=== PATIENT | male | born 1970 | race American Indian/Alaskan Native ===

== ENCOUNTER 2021-08-07 17:19 | Emergency (ER) | payer SELFPAY ==
--- NOTE | 2021-08-07 17:41 | Emergency Department Report ---
HPI - General Chief Complaint: Weakness Time Seen by Provider: 08/07/21 17:26 - HPI HPI: Room 3 The patient is a 50-year-old male present with a chief complaint of dizziness. Patient reportedly has been working outside this morning approximately 6 hours. Patient states he felt fine after working and was driving to the pharmacy. Patient states he was asymptomatic while driving however when he went inside the pharmacy he began to feel dizzy and off-balance. Patient developed some nausea vomiting. Patient was found to be diaphoretic and EMS was called to find the patient hypertensive at 180/110. Patient was administered 1 L normal saline prior to arrival to the ED and EMS reports the patient has some improvement. Patient still complains of slight dizziness currently ED Past Medical Hx - Past Medical History Previous Medical History?: No - Surgical History Past Surgical History?: No - Family History Family history: no significant - Social History Smoking Status: Never Smoker Substance Use Type: None (Denies illicit drug use) ED Review of Systems ROS: Stated complaint: DEHYDRATION Other details as noted in HPI Constitutional: no symptoms reported Eyes: denies: eye pain ENT: denies: throat pain Respiratory: no symptoms reported Cardiovascular: denies: chest pain Endocrine: no symptoms reported Gastrointestinal: nausea, vomiting. denies: abdominal pain Genitourinary: denies: dysuria Musculoskeletal: denies: back pain Neurological: vertigo. denies: headache, weakness Physical Exam - Physical Exam Vital Signs: Vital Signs 08/07/21 17:22 Pulse Rate 76 Blood Pressure 160/80 [Left] O2 Sat by Pulse 98 Oximetry Physical Exam: GENERAL: The patient is well-developed well-nourished []. [] HEENT: Normocephalic. Atraumatic. Extraocular motions are intact. Vertical and horizontal nystagmus noted NECK: Supple. Trachea midline CHEST/LUNGS: Clear to auscultation. There is no respiratory distress noted. HEART/CARDIOVASCULAR: Regular. There is no tachycardia. There is no gallop rub or murmur. ABDOMEN: Abdomen is soft, nontender. Patient has normal bowel sounds. There is no abdominal distention. SKIN: There is no rash. There is no edema. There is no diaphoresis. NEURO: The patient is awake, alert, and oriented. The patient is cooperative. Cranial nerves II through XII grossly intact. The patient has normal speech. There is dysmetria noted with [id number] bilaterally. GCS 15 MUSCULOSKELETAL: There is no evidence of acute injury. ED Course Vital Signs 08/07/21 17:22 Pulse Rate 76 Blood Pressure 160/80 [Left] O2 Sat by Pulse 98 Oximetry - Consultations Consultation #1: 08/07/21 21:56 CTh discussed with neurologist-recommends aspirin/Plavix in transfer to facility with neuro intervention in case stenotic vertebral artery worsens Consultation #2: 08/07/21 21:57 [facility] grip transfer line called ED Medical Decision Making - Lab Data Result diagrams: 08/07/21 17:58 08/07/21 17:58 - EKG Data -: EKG Interpreted by Me EKG shows normal: sinus rhythm Rate: normal - EKG Data When compared to previous EKG there are: previous EKG unavailable Interpretation: nonspecific ST-T wave suly (Biphasic T waves in lead III, T wave inversion lead V2) - Radiology Data Radiology results: report reviewed (CT head, CTA head, CTA neck), image reviewed (CT head, CTA head, CTA neck) [place] [id number] Cat Scan Report Signed Patient: JULIANA BACON MR#: [id number] 4 : 1970 Acct:[id number] Age/Sex: 50 / M ADM Date: 08/07/21 Loc: ED Attending Dr: Ordering Physician: JORDAN ACHARYA MD Date of Service: 08/07/21 Procedure(s): CT head/brain wo con Accession Number(s): [id number] cc: JORDAN ACHARYA MD CT HEAD WITHOUT CONTRAST INDICATION / CLINICAL INFORMATION: Vertical nystagmus, dysmetria, dizziness. TECHNIQUE: All CT scans at this location are performed using CT dose reduction for ALARA by means of automated exposure control. COMPARISON: None available. FINDINGS: HEMORRHAGE: No evidence of intracranial hemorrhage or extra-axial fluid collection. EXTRA-AXIAL SPACES: Cortical sulci, sylvian fissures and basilar cisterns have an unremarkable appearance. VENTRICULAR SYSTEM: Developmental asymmetry of the lateral ventricles is noted left larger than right. CEREBRAL PARENCHYMA: No areas of abnormal brain parenchymal attenuation are identified. There is no indication of recent infarction. MIDLINE SHIFT OR HERNIATION: There is no mass effect. CEREBELLUM / BRAINSTEM: Brainstem and cerebellum have an unremarkable appearance. MIDLINE STRUCTURES:No abnormalities of the pituitary gland or pineal region are identified. INTRACRANIAL VESSELS:No abnormalities are identified on this noncontrast head CT. ORBITS: visualized portions of the orbits have an unremarkable appearance. SOFT TISSUES of HEAD: No significant abnormality. CALVARIUM: Evaluation of bone windows reveals no abnormalities. PARANASAL SINUSES / MASTOID AIR CELLS: Visualized portions of the paranasal sinuses are free from inflammatory mucosal disease. Mastoid air cells are normally pneumatized. ADDITIONAL FINDINGS: None. IMPRESSION: 1. No significant intracranial abnormality identified on head CT without contrast.. Signer Name: Rishabh Chu MD Signed: 08/07/2021 6:19 PM Workstation Name: [id number] Transcribed By: Dictated By: Rishabh Chu MD Electronically Authenticated By: Rishabh Chu MD Signed Date/Time: 08/07/211818 DD/ 16 TD/TT: [place] [address] Cat Scan Report Signed Patient: JULIANA BACON MR#: [id number] 4 : 1970 Acct:[id number] Age/Sex: 50 / M ADM Date: 08/07/21 Loc: ED Attending Dr: Ordering Physician: JORDAN ACHARYA MD Date of Service: 08/07/21 Procedure(s): CT angio neck Accession Number(s): [id number] cc: JORDAN ACHARYA MD CTA NECK WITH CONTRAST 08/07/2021 INDICATION / CLINICAL INFORMATION: Dizziness, vertigo nystagmus, dysmetria. COMPARISON: None. TECHNIQUE: Routine CTA of the neck is performed. 3-D/MIP reformats were postprocessed. Percentage stenosis is determined by direct quantitative measurements of diseased internal carotid artery diameter compared with normal distal internal carotid artery reference segments or by criteria similar to NASCET where applicable. All CT scans at this location are performed using CT dose reduction for ALARA by means of automated exposure control. CONTRAST: 100 ml of Omnipaque 350 FINDINGS: Carotid bifurcations: Mild atherosclerotic irregularity is seen at the carotid bifurcations bilaterally, with no evidence of significant or measurable stenosis. Carotid arteries: No significant abnormality. Cervical vertebral arteries: The vertebral arteries are relatively hypoplastic. The right distal vertebral artery appears to be occluded or become very hypoplastic at the C1 level. The intracranial right vertebral artery is visualized, but does not opacify, consistent with stenosis or distal occlusion. Aortic arch: No significant abnormality. None. IMPRESSION: No evidence of bifurcation stenosis. 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 Signer Name: Andrea Ma MD Signed: 08/07/2021 9:00 PM Workstation Name: [id number] Transcribed By: AO Dictated By: Andrea Ma MD Electronically Authenticated By: Andrea Ma MD Signed Date/Time: 08/07/212099 DD/ 53 TD/TT: [facility] [address] [place] [address] Cat Scan Report Signed Patient: JULIANA BACON MR#: [id number] 4 : 1970 Acct:[id number] Age/Sex: 50 / M ADM Date: 08/07/21 Loc: ED Attending Dr: Ordering Physician: JORDAN ACHARYA MD Date of Service: 08/07/21 Procedure(s): CT angio head Accession Number(s): [id number] cc: JORDAN ACHARYA MD CTA HEAD WITH CONTRAST 08/07/2021 HISTORY: Dizziness, vertigo nystagmus, dysmetria. COMPARISON: None. TECHNIQUE: All CT scans at this location are performed using CT dose reduction for ALARA by means of automated exposure control.. 3-D/MIP reformats postprocessed. Percentage stenosis is determined by direct quantitative measu rements of diseased internal carotid artery diameter compared with normal distal internal carotid artery reference segments or by criteria similar to NASCET where applicable. CONTRAST: 100 ml of Omnipaque 350 FINDINGS: CTA HEAD: Intracranial vertebral arteries: The right vertebral artery can be visualized, but does not opacify, consistent with distal vertebral artery occlusion. The left distal vertebral artery is hypoplastic and irregular, possibly due to superimposed osteoporotic stenosis.. Basilar artery: Basilar artery is unremarkable. Source of its opacification is uncertain, given the stenosis and occlusion of distal vertebral arteries mentioned above. Retrograde flow must be considered. Posterior cerebral arteries: No significant abnormality. Intracranial internal carotid arteries: No significant abnormality. Anterior cerebral arteries: No significant abnormality. Middle cerebral arteries: No significant abnormality. Dural venous sinuses:Not optimally opacified. No significant abnormality. Additional findings: None. Signer Name: Andrea Ma MD Signed: 08/07/2021 9:02 PM Workstation Name: [id number] Transcribed By: GILBERT Dictated By: Andrea Ma MD Electronically Authenticated By: Andrea Ma MD Signed Date/Time: 08/07/212101 DD/ 99 TD/TT: - Differential Diagnosis CVA, cerebellar mass, cerebellar hemorrhage, hypertensive urgency, [place] Critical care attestation.: If time is entered above; I have spent that time in minutes in the direct care of this critically ill patient, excluding procedure time. ED Disposition Clinical Impression: CVA (cerebral vascular accident) Disposition: 04 [facility] Is pt being admited?: No Does the pt Need Aspirin: Yes Condition: Fair Referrals: HALEIGH NUGENT MD [Primary Care Provider] - 3-5 Days Time of Disposition: 23:30 (awaiting transfer)
[2021-08-07] MEDS ORDERED: ASPIRIN 325 MG TAB PO ONE (17:55)
[2021-08-07] MEDS ORDERED: NITROGLYCERIN 2% OINT 1 GM TP ONE (17:55)
[2021-08-07 18:20] LABS: Basophils % (Auto) 0.1 % (0.0-1.8); Eosinophils % (Auto) 0.4 % (0.0-4.3); Hemoglobin 13.7 gm/dl (11.8-15.2); Lymphocytes % (Auto) 12.5 % (13.4-35.0); Mean Corpuscular HGB Conc 35 % (32-34); Mean Corpuscular Volume 81 fl (84-94); Monocytes # (Auto) 0.4 K/mm3 (0.0-0.8); Monocytes % (Auto) 4.6 % (0.0-7.3); Platelet Count 153 K/mm3 (140-440); Red Blood Count 4.83 M/mm3 (3.65-5.03); Red Cell Distribution Width 12.6 % (13.2-15.2)
--- NOTE | 2021-08-07 18:23 | Cat Scan Report ---
CT HEAD WITHOUT CONTRAST INDICATION / CLINICAL INFORMATION: Vertical nystagmus, dysmetria, dizziness. TECHNIQUE: All CT scans at this location are performed using CT dose reduction for ALARA by means of automated e xposure control. COMPARISON: None available. FINDINGS: HEMORRHAGE: No evidence of intracranial hemorrhage or extra-axial fluid collection. EXTRA-AXIAL SPACES: Cortical sulci, sylvian fissures and basilar cisterns have an unremarkable appear ance. VENTRICULAR SYSTEM: Developmental asymmetry of the lateral ventricles is noted left larger than right . CEREBRAL PARENCHYMA: No areas of abnormal brain parenchymal attenuation are identified. There is no i ndication of recent infarction. MIDLINE SHIFT OR HERNIATION: There is no mass effect. CEREBELLUM / BRAINSTEM: Brainstem and cerebellum have an unremarkable appearance. MIDLINE STRUCTURES:No abnormalities of the pituitary gland or pineal region are identified. INTRACRANIAL VESSELS:No abnormalities are identified on this noncontrast head CT. ORBITS: visualized portions of the orbits have an unremarkable appearance. SOFT TISSUES of HEAD: No significant abnormality. CALVARIUM: Evaluation of bone windows reveals no abnormalities. PARANASAL SINUSES / MASTOID AIR CELLS: Visualized portions of the paranasal sinuses are free from inf lammatory mucosal disease. Mastoid air cells are normally pneumatized. ADDITIONAL FINDINGS: None. IMPRESSION: 1. No significant intracranial abnormality identified on head CT without contrast.. Signer Name: Rishabh Chu MD Signed: 08/07/2021 6:19 PM Workstation Name: [id number]
--- NOTE | 2021-08-07 18:24 | Consultation ---
History of Present Illness History of present illness: [facility] Consult Note # Demographics Consult Type: Acute Stroke Level 1 (0-4.5 hrs) Patient Location: Emergency Room First Name: Kane Last Name: Alec Date of : 1970 Age: 50 Gender: Male Facility: Time of Initial Page (): 08/07/2021, 17:36 Time of Return Call (): 08/07/2021, 17:36 # HPI Chief Complaint: dizziness History: 50M presents with fatigue and dizziness. Symptoms started between 1330 and 1400. [place] like room was spinning.Does not have any known medical issues. On ED exam, noted to have vertical nystagmus and bilateral upper extremity dysmetria. # Scores Time of exam and NIHSS (): 08/07/2021, 17:38 Level of Consciousness 1a: [0] = Alert; keenly responsive LOC Questions 1b: [0] = Answers both questions correctly LOC Commands 1c: [0] = Performs both tasks correctly Best Gaze 2: [0] = Normal Visual 3: [0] = No visual loss Facial Palsy 4: [0] = Normal symmetrical movements Motor Arm Left 5a: [0] = No drift Motor Arm Right 5b: [0] = No drift Motor Leg Left 6a: [0] = No drift Motor Leg Right 6b: [0] = No drift Limb Ataxia 7: [0] = Absent Sensory 8: [0] = Normal Best Language 9: [0] = No aphasia Dysarthria 10: [0] = Normal Extinction and Inattention 11: [0] = No abnormality NIHSS Total: 0 # Data Time Head CT personally read by me (): 08/07/2021, 17:[address]: no bleed preliminarily reviewed by me, please refer to radiology read for official reading # Assessment Impression: Transient Ischemic Attack vs acute stroke # Plan Thrombolytic/Intervention: NOT IV Thrombolysis or IA Intervention candidate Thrombolytic Exclusion (< 3 hour window): NIHSS = 0 Intraarterial Exclusion: non-disabling Target Blood Pressure: SBP < 220 DBP < 105 Labs: hemoglobin A1c lipid panel Imaging: (urgency: STAT): CT Angiogram Head and CT Angiogram Neck AND call back with results if abnormal Imaging: (urgency: routine): MRI Brain without contrast Diagnostic Test: echo with bubble study Therapy/Evaluation: PT/OT evaluation Medication: ASA 325 x1 then 81 daily If < 50% stenosis of cervical ICAs, give Plavix 300 x1 then 75 daily x3 weeks Atorvastatin 80, tailor to LDL< 70 goal DVT Prophylaxis: SCD chemical DVT prophylaxis Other: consult on-site neurology service for full work-up and evaluation recommendations permissive hypertension telemetry monitoring I have discussed my recommendations with the referring provider Disposition: admit # Logistics Telemedicine: Interactive 2 way audio and visual telecommunication technology was utilized during this visit Electronically signed at 08/07/2021 18:24 (Eastern Time) by Claudy Mendez MD Medications and Allergies Allergies Allergy/AdvReac Type Severity Reaction Status Date / Time No Known Allergies Allergy Verified 08/07/21 17:24 Physical Examination - Vital Signs Vital Signs: Vital Signs Pulse BP Pulse Ox 76 160/80 98 08/07/21 17:22 08/07/21 17:22 08/07/21 17:22 Results - Laboratory Findings CBC and BMP: 08/07/21 17:58 Abnormal Lab Findings: Abnormal Labs 08/07/21 17:58 MCV 81 L MCHC 35 H RDW 12.6 L Lymph % (Auto) 12.5 L Lymph # (Auto) 1.0 L Seg Neutrophils % 82.4 H
[2021-08-07 18:44] LABS: Blood Urea Nitrogen 11 mg/dL (9-20); Calcium 9.2 mg/dL (8.4-10.2); Hemolysis Index 18
[2021-08-07 18:45] LABS: BUN/Creatinine Ratio 22
[2021-08-07 18:50] LABS: INR 0.95 (0.87-1.13)
[2021-08-07 18:51] LABS: Partial Thromboplastin Time 24.4 Sec. (24.2-36.6); Thrombin Time 15.7 Sec. (15.1-19.6)
[2021-08-07 18:54] LABS: Free T4 (Free Thyroxine) 1.07 ng/dL (0.76-1.46)
[2021-08-07 19:39] LABS: Amphetamine Screen,Urine Negative; Benzodiazepines Screen,Urine Negative; Cannabinoid Screen,Urine Negative; Cocaine Screen,Urine Negative; Methadone Screen,Urine Negative; Opiate Screen,Urine Negative
[2021-08-07 20:18] LABS: Mucus,Urine FEW /HPF; WBC,Urine < 1.0 /HPF (0.0-6.0)
[2021-08-07 20:40] LABS: Bilirubin,Urine Negative (Negative); Blood,Urine Negative (Negative); Color,Urine Straw (Yellow); Protein,Urine <15 mg/dL mg/dL (Negative); Urobilinogen,Urine < 2.0 mg/dL (<2.0)
--- NOTE | 2021-08-07 21:04 | Cat Scan Report ---
CTA NECK WITH CONTRAST 08/07/2021 INDICATION / CLINICAL INFORMATION: Dizziness, vertigo nystagmus, dysmetria. COMPARISON: None. TECHNIQUE: Routine CTA of the neck is performed. 3-D/MIP reformats were postprocessed. Percentage st enosis is determined by direct quantitative measurements of diseased internal carotid artery diameter compared with normal distal internal carotid artery reference segments or by criteria similar to CHASITY CET where applicable. All CT scans at this location are performed using CT dose reduction for ALARA b y means of automated exposure control. CONTRAST: 100 ml of Omnipaque 350 FINDINGS: Carotid bifurcations: Mild atherosclerotic irregularity is seen at the carotid bifurcations bilateral ly, with no evidence of significant or measurable stenosis. Carotid arteries: No significant abnormality. Cervical vertebral arteries: The vertebral arteries are relatively hypoplastic. The right distal vert ebral artery appears to be occluded or become very hypoplastic at the C1 level. The intracranial righ t vertebral artery is visualized, but does not opacify, consistent with stenosis or distal occlusion. Aortic arch: No significant abnormality. None. IMPRESSION: No evidence of bifurcation stenosis. 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 Signer Name: Andrea Ma MD Signed: 08/07/2021 9:00 PM Workstation Name: [id number]
--- NOTE | 2021-08-07 21:06 | Cat Scan Report ---
CTA HEAD WITH CONTRAST 08/07/2021 HISTORY: Dizziness, vertigo nystagmus, dysmetria. COMPARISON: None. TECHNIQUE: All CT scans at this location are performed using CT dose reduction for ALARA by means of automated exposure control.. 3-D/MIP reformats postprocessed. Percentage stenosis is determined by d irect quantitative measurements of diseased internal carotid artery diameter compared with normal dis cee internal carotid artery reference segments or by criteria similar to NASCET where applicable. CONTRAST: 100 ml of Omnipaque 350 FINDINGS: CTA HEAD: Intracranial vertebral arteries: The right vertebral artery can be visualized, but does not opacify, consistent with distal vertebral artery occlusion. The left distal vertebral artery is hypoplastic an d irregular, possibly due to superimposed osteoporotic stenosis.. Basilar artery: Basilar artery is unremarkable. Source of its opacification is uncertain, given the s tenosis and occlusion of distal vertebral arteries mentioned above. Retrograde flow must be considere d. Posterior cerebral arteries: No significant abnormality. Intracranial internal carotid arteries: No significant abnormality. Anterior cerebral arteries: No significant abnormality. Middle cerebral arteries: No significant abnormality. Dural venous sinuses:Not optimally opacified. No significant abnormality. Additional findings: None. Signer Name: Andrea Ma MD Signed: 08/07/2021 9:02 PM Workstation Name: [id number]
[2021-08-07] MEDS ORDERED: CLOPIDOGREL 300 MG TAB PO ONE (21:57)
--- NOTE | 2021-08-07 21:57 | Consultation ---
History of Present Illness History of present illness: [place] [facility] Consult Note # Demographics Consult Type: Follow-Up Phone Call Patient Location: Emergency Room First Name: Kane Last Name: Alec Date of : 1970 Age: 50 Facility: [facility] Time of Initial Page (Eastern Time): 08/07/2021, 21:49 Time of Return Call ( Time): 08/07/2021, 21:52 Phone Only Consult: CTH shows occluded R vertebral artery at C1 and occluded vs highly stenotic L vertebral artery in the mid V4 segment with distal reconstitution, and apparently normal flow through the basilar artery and anterior circulation. Would give ASA 325, Plavix 300 now. Given severity of vessel disease in the posterior fossa, would transfer to a comprehensive stroke center for further evaluation and management. # Log[employer] Telemedicine: phone only Electronically signed at 08/07/2021 21:57 ( Time) by Claudy Mendez MD Medications and Allergies Allergies Allergy/AdvReac Type Severity Reaction Status Date / Time No Known Allergies Allergy Verified 08/07/21 17:24 Physical Examination - Vital Signs Vital Signs: Vital Signs Pulse BP Pulse Ox 76 160/80 98 08/07/21 17:22 08/07/21 17:22 08/07/21 17:22 Results - Laboratory Findings CBC and BMP: 08/07/21 17:58 08/07/21 17:58 Abnormal Lab Findings: Abnormal Labs 08/07/21 08/07/21 17:58 17:58 MCV 81 L MCHC 35 H RDW 12.6 L Lymph % (Auto) 12.5 L Lymph # (Auto) 1.0 L Seg Neutrophils % 82.4 H Sodium 135 L Creatinine 0.5 L Glucose 312 H
[2021-08-07 22:14] VITALS: BP 162/92
--- NOTE | 2021-08-08 12:12 | Electrocardiograph Report ---
[facility] Test Date: 2021-08-07 Test Time: 17:57:51 Pat Name: JULIANA BACON Department: Room: Gender: M [employer] Consultant: DEBBIE : 1970 Requested By: JORDAN ACHARYA Order Number: [id number] Reading MD: Tamika Gomez Measurements Intervals [place] Rate: 74 P: 40 MO: 197 QRS: -23 QRSD: 128 T: 32 QT: 401 QTc: 445 Interpretive Statements Sinus rhythm IVCD, consider RBBB No previous ECG available for comparison Electronically Signed On 08-08-2021 12:11:57 EDT by Tamika Gomez
== END 2021-08-07 23:50 ==
LOC: ED 17:19
DX: I63.9 Cerebral infarction, unspecified (principal)
CPT/HCPCS: 36415; 70450; 70496; 70498; 80048; 80307; 81001; 84439; 84443; 84484; 85025; 85610; 85670; 85730; 93005; 99285; Q9967